=== PATIENT | female | born 1960 | race Two or more races ===

== ENCOUNTER 2018-01-02 13:12 | Outpatient (CLI) | payer OTHER ==
[~2018-01-02 13:12] MED LIST: AMARYL; CIPRO500 MG PO; DITROPAN5 MG; FLEXERIL10 MG PO; GLIMEPIRIDE4 MG; KETO10TA2 PO; METFORMIN HCL500 MG; MOTRIN800 MG PO; NABUMETONE750 MG PO; OMEGA 3 FISH OI1 CAP; ORPH100T PO; SEPTRA 80-400 T1 TAB PO; TRAMADOL HCL50 MG PO; ULTRAM50 MG PO; VYTORIN 10/10 M1 TAB PO; ZOCOR5 MG PO
== END 2018-01-02 13:23 | disposition home or self-care (01) ==
LOC: SONOGRAMA 13:12 → MAMO-SONO 13:15 → SONOGRAMA 13:23
DX: M71.22 Synovial cyst of popliteal space [Baker], left knee (principal)

== ENCOUNTER 2018-02-19 19:33 | Emergency (ER) | payer OTHER ==
[~2018-02-19] VITALS: Ht 157.5 cm; Wt 76.2 kg
[2018-02-19] MEDS ORDERED: JANUVIA25 MG (19:44)
== END 2018-02-19 21:59 | disposition home or self-care (01) ==
LOC: ER 19:33
DX: J06.9 Acute upper respiratory infection, unspecified (principal)

== ENCOUNTER 2018-07-27 13:08 | Emergency (ER) | payer OTHER ==
[~2018-07-27] VITALS: Ht 157.5 cm; Wt 74.4 kg
[~2018-07-27 13:08] MED LIST changes: +JANUVIA25 MG
== END 2018-07-27 17:14 | disposition home or self-care (01) ==
LOC: ER 13:08
DX: J11.1 Influenza due to unidentified influenza virus with other respiratory manifestations (principal)

== ENCOUNTER 2022-09-13 06:29 | Day surgery (SDC) | payer OTHER ==
[~2022-09-13] VITALS: Ht 157.5 cm; Wt 72.6 kg
[~2022-09-13 06:29] MED LIST changes: +SYNJARDY 5-5001 EACH PO
== END 2022-09-13 15:20 | disposition home or self-care (01) ==
LOC: CIR.AMB 06:29
PROVIDERS: ATTEND Orthopaedic Surgery
DX: M75.02 Adhesive capsulitis of left shoulder (principal); M25.811 Other specified joint disorders, right shoulder; M24.112 Other articular cartilage disorders, left shoulder; M75.22 Bicipital tendinitis, left shoulder; Z20.822 Contact with and (suspected) exposure to COVID-19; Z88.0 Allergy status to penicillin; Z88.1 Allergy status to other antibiotic agents

== ENCOUNTER 2024-01-17 15:41 | Emergency (ER) | payer OTHER ==
[~2024-01-17] VITALS: Ht 157.5 cm; Wt 74.8 kg
[2024-01-17] MEDS ORDERED: LORazepam 0.5 MG TABLET PO ONE (16:45)
== END 2024-01-17 17:38 | disposition home or self-care (01) ==
LOC: ER 15:41
DX: F41.8 Other specified anxiety disorders (principal); Z88.0 Allergy status to penicillin; Z88.8 Allergy status to other drugs, medicaments and biological substances; E11.9 Type 2 diabetes mellitus without complications; Z79.84 Long term (current) use of oral hypoglycemic drugs